=== PATIENT | female | born 1980 | race Caucasian/White ===

== ENCOUNTER 2019-01-17 12:27 | Inpatient (IN) | payer MEDICAID ==
[~2019-01-17] VITALS: Ht 165.1 cm; Wt 69.0 kg
[2019-01-17] MEDS ORDERED: LORazepam 2 MG TABLET PO PRN (17:00)
[2019-01-17] MEDS ORDERED: ZOLPIDEM TARTRATE 10 MG TABLET PO PRN (17:00)
[2019-01-17] MEDS ORDERED: DULO60CA44 PO (18:16)
[2019-01-17] MEDS ORDERED: TRAZ-220 PO (18:16)
[2019-01-17] MEDS ORDERED: ARIP5TAB8 PO (18:16)
[2019-01-17] MEDS ORDERED: INFLUENZA VIRUS VACCINE QVS 2019-20 (3YR+)/PF 60 MCG/0.5 ML SYRINGE IM ONE (18:30)
[2019-01-17 19:33] VITALS: BP 118/67
[2019-01-17] MEDS: TraZODone HCL 100 MG TABLET PO SCH (21:56)
[2019-01-18 01:00] VITALS: BP 102/63
[2019-01-18] MEDS ORDERED: DOCUSATE SODIUM 100 MG CAPSULE PO PRN (08:00)
[2019-01-18] MEDS ORDERED: OMEPRAZOLE 20 MG CAPSULE PO PRN (08:00)
[2019-01-18] MEDS ORDERED: LOPERAMIDE HCL 2 MG CAPSULE PO PRN (08:00)
[2019-01-18] MEDS ORDERED: ACETAMINOPHEN 325 MG TABLET PO PRN (08:00)
[2019-01-18] MEDS ORDERED: MAGNESIUM HYDROXIDE SUSPENSION 30 ML UDCUP PO PRN (08:00)
[2019-01-18] MEDS ORDERED: IBUPROFEN 600 MG TABLET PO PRN (08:00)
[2019-01-18] MEDS ORDERED: MAG HYDROX/AL HYDROX/SIMETH ES 30 ML SUSPENSION UDCUP PO PRN (08:00)
[2019-01-18] MEDS ORDERED: CloNIDine HCL 0.1 MG TABLET PO PRN (08:00)
[2019-01-18] MEDS ORDERED: BENZOCAINE/MENTHOL LOZENGE MM PRN (08:00)
[2019-01-18] MEDS ORDERED: ALBUTEROL SULFATE HFA 90 MCG/PUFF 8 GM INHALER IH PRN (08:00)
[2019-01-18] MEDS ORDERED: BACITRACIN 28.4 GM OINTMENT TP PRN (08:00)
[2019-01-18] MEDS ORDERED: PETROLATUM,WHITE 28 GM JELLY TP PRN (08:00)
[2019-01-18] MEDS ORDERED: ONDANSETRON HCL 4 MG TABLET PO PRN (08:00)
[2019-01-18 08:28] VITALS: BP 110/61
[2019-01-18] MEDS: ARIPiprazole 5 MG TABLET PO SCH (08:38)
[2019-01-18] MEDS: DULoxetine HCL 60 MG CAPSULE PO SCH (08:38)
[2019-01-18 08:48] LABS: BASOPHILS % (AUTO) 0.6 % (0.0-2.0); EOSINOPHILS % (AUTO) 1.4 % (1.0-6.0); HEMATOCRIT 35.6 % (36-46); HEMOGLOBIN 11.9 g/dL (12.0-16.0); LYMPHOCYTES # (AUTO) 1.6 K/uL (1.0-4.8); LYMPHOCYTES % (AUTO) 34.7 % (22.0-44.0); MEAN CORPUSCULAR HEMOGLOBIN 29.7 pg (26.0-34.0); MEAN CORPUSCULAR HGB CONC 33.5 G/dL (31.0-37.0); MEAN CORPUSCULAR VOLUME 89 fL (80-100); MONOCYTES # (AUTO) 0.3 K/uL (0.1-1.0); MONOCYTES % (AUTO) 7.1 % (2.0-9.0); NEUTROPHILS # (AUTO) 2.6 K/uL (1.8-7.7); NEUTROPHILS % (AUTO) 56.2 % (40.0-70.0); PLATELET COUNT (AUTO) 216 K/uL (150-450); RED CELL DISTRIBUTION WIDTH 13.5 % (11.5-14.5)
[2019-01-18 09:37] LABS: ALANINE AMINOTRANSFERASE 11 U/L (12-78); ALBUMIN 3.3 g/dL (3.4-5.0); ALKALINE PHOSPHATASE 48 U/L (46-116); ANION GAP 8 mmol/L (8-16); ASPARTATE AMINOTRANSFERASE 10 U/L (15-37); BILIRUBIN,TOTAL 0.2 mg/dL (0.1-1.0); CALCIUM, TOTAL 8.2 mg/dL (8.8-10.5); CARBON DIOXIDE 25 mmol/L (22-29); CHLORIDE 107 mmol/L (98-107); CHOL/HDL RATIO 3.2 (3.9-5.7); CHOLESTEROL 153 mg/dL (131-200); CREATININE 0.86 mg/dL (0.60-1.30); FREE T4 (FREE THYROXINE) 0.71 ng/dL (0.76-1.46); GLOMERULAR FILTR. RATE CALC > 60 mL/min (>60); GLUCOSE,RANDOM 89 mg/dL (70-110); HCG,QUANTITATIVE < 1 mIU/mL (0-6); HDL CHOLESTEROL 48 mg/dL (40-60); LDL CHOL (CALC.) 92 mg/dL (0-130); POTASSIUM 4.1 mmol/L (3.5-5.1); SODIUM SERUM 140 mmol/L (136-145); THYROID STIMULATING HORMONE 1.09 uIU/mL (0.36-3.74); TOTAL PROTEIN, SERUM 6.7 g/dL (6.4-8.2); TRIGLYCERIDES 67 mg/dL (15-150); UREA NITROGEN, BLOOD 8 mg/dL (7-18)
[2019-01-18 16:28] VITALS: BP 121/75
[2019-01-18] MEDS: TraZODone HCL 100 MG TABLET PO SCH (20:04)
[2019-01-19 00:28] VITALS: BP 127/74
[2019-01-19 08:15] VITALS: BP 108/88
[2019-01-19] MEDS: DULoxetine HCL 60 MG CAPSULE PO SCH (08:41)
[2019-01-19] MEDS: ARIPiprazole 5 MG TABLET PO SCH (08:41)
[2019-01-19 16:09] VITALS: BP 108/61
[2019-01-19] MEDS: TraZODone HCL 100 MG TABLET PO SCH (20:06)
[2019-01-20 06:47] VITALS: BP 106/70
[2019-01-20 08:34] VITALS: BP 107/67
[2019-01-20] MEDS: DULoxetine HCL 60 MG CAPSULE PO SCH (08:57)
[2019-01-20] MEDS: ARIPiprazole 5 MG TABLET PO SCH (08:57)
[2019-01-20 16:10] VITALS: BP 105/68
[2019-01-20] MEDS: LITHIUM CARBONATE 300 MG CAPSULE PO SCH (17:06)
[2019-01-20] MEDS: TraZODone HCL 100 MG TABLET PO SCH (20:06)
[2019-01-21 00:15] VITALS: BP 116/77
[2019-01-21 08:24] VITALS: BP 103/66
[2019-01-21] MEDS: DULoxetine HCL 60 MG CAPSULE PO SCH (08:49)
[2019-01-21] MEDS: LITHIUM CARBONATE 300 MG CAPSULE PO SCH ×2 (08:49→16:53)
[2019-01-21] MEDS: ARIPiprazole 5 MG TABLET PO SCH (08:49)
[2019-01-21 09:01] VITALS: BP 103/66
[2019-01-21 16:09] VITALS: BP 104/60
[2019-01-21] MEDS: TraZODone HCL 100 MG TABLET PO SCH (20:44)
[2019-01-22 06:33] VITALS: BP 103/64
[2019-01-22 08:24] VITALS: BP 105/66
[2019-01-22] MEDS: ARIPiprazole 5 MG TABLET PO SCH (08:57)
[2019-01-22] MEDS: DULoxetine HCL 60 MG CAPSULE PO SCH (08:57)
[2019-01-22] MEDS: LITHIUM CARBONATE 300 MG CAPSULE PO SCH ×2 (08:57→16:15)
[2019-01-22 16:09] VITALS: BP 103/68
[2019-01-22] MEDS: TraZODone HCL 100 MG TABLET PO SCH (20:11)
[2019-01-23 00:30] VITALS: BP 103/65
[2019-01-23] MEDS: DULoxetine HCL 60 MG CAPSULE PO SCH (08:02)
[2019-01-23] MEDS: ARIPiprazole 5 MG TABLET PO SCH (08:02)
[2019-01-23] MEDS: LITHIUM CARBONATE 300 MG CAPSULE PO SCH ×2 (08:02→16:11)
[2019-01-23 08:16] VITALS: BP 117/62
[2019-01-23 16:28] VITALS: BP 110/80
[2019-01-23] MEDS: TraZODone HCL 100 MG TABLET PO SCH (20:02)
[2019-01-24 07:23] VITALS: BP 107/79
[2019-01-24 08:09] VITALS: BP 103/61
[2019-01-24] MEDS ORDERED: LITH300C3 PO (08:37)
[2019-01-24] MEDS: DULoxetine HCL 60 MG CAPSULE PO SCH (08:53)
[2019-01-24] MEDS: ARIPiprazole 5 MG TABLET PO SCH (08:53)
[2019-01-24] MEDS: LITHIUM CARBONATE 300 MG CAPSULE PO SCH (08:53)
== END 2019-01-24 13:34 | disposition home or self-care (01) | DRG 753 ==
LOC: B2S 17:26
PROVIDERS: ADMIT Psychiatry & Neurology Psychiatry; ATTEND Psychiatry & Neurology Psychiatry
DX: F31.9 Bipolar disorder, unspecified (principal); R45.851 Suicidal ideations; K59.00 Constipation, unspecified; Z59.0 Homelessness; F41.9 Anxiety disorder, unspecified; G47.00 Insomnia, unspecified; Z79.899 Other long term (current) drug therapy
CPT/HCPCS: 84439; 84443; 87081; 90686